=== PATIENT | female | born 1980 | race Caucasian/White ===

== ENCOUNTER 2019-01-05 13:51 | Emergency (ER) | payer OTHER ==
[~2019-01-05] VITALS: Ht 162.6 cm; Wt 59.0 kg
[~2019-01-05 13:51] MED LIST: ALBU90OI INH; Amoxicillin500 MG PO; BCP'S; BIRTH CONTROL; CEPH500 PO; CODGUAEL PO; Cipro500 MG PO; DIAZ2 PO; DULO30; DULO60 PO; HYDACE10B; HYDACE5 PO; HYDACE7.5; IBUP600 PO; IBUP800 PO; LORA.5; LORA1 PO; LORA2; Labetalol HCl300 MG PO; META800 PO; MULVITMINE; NAPR220; NAPR500 PO; NAPR550 PO; OXYACE5T PO; PENVK500 PO; RANI150 PO; RXOXYACE PO; SPACE CHAMBER1 EACH MC; Veetids 500500 MG PO; Verotin-Gr Cap1 EACH; Zithromax250 MG PO
[2019-01-05] MEDS ORDERED: LISINOPRIL (14:21)
[2019-01-05] MEDS ORDERED: BENZ100A PO (15:15)
[2019-01-05] MEDS ORDERED: Flonase 0.05% N16 GM (15:15)
[2019-01-05] MEDS ORDERED: ALBU90OI INH (15:15)
[2019-01-05] MEDS ORDERED: Sudogest30 MG PO (15:15)
== END 2019-01-05 15:39 | disposition home or self-care (01) ==
LOC: ER 13:51
DX: J06.9 Acute upper respiratory infection, unspecified (principal); F17.200 Nicotine dependence, unspecified, uncomplicated; Z79.899 Other long term (current) drug therapy
CPT/HCPCS: 71046; 99283-25; J1100

== ENCOUNTER 2021-07-22 14:37 | Emergency (ER) | payer OTHER ==
[~2021-07-22] VITALS: Ht 162.6 cm; Wt 63.5 kg
[~2021-07-22 14:37] MED LIST changes: +BENZ100A PO; +Flonase 0.05% N16 GM; +LISINOPRIL; +Sudogest30 MG PO
[2021-07-22 16:03] LABS: BASOPHILS ABSOLUTE AUTO 0.04 K/mm3 (0.00-0.23); BASOPHILS PERCENT AUTO 0 % (0-2); EOSINOPHILS PERCENT AUTO 0 % (0-6); Hematocrit 41.4 % (33.0-51.0); Hemoglobin 13.8 g/dL (11.5-16.0); IMMATURE GRAN ABSOLUTE AUTO 0.04 K/mm3 (0.00-0.10); IMMATURE GRAN PERCENT AUTO 0 % (0-1); LYMPHOCYTES ABSOLUTE AUTO 1.67 K/mm3 (0.84-5.20); LYMPHOCYTES PERCENT AUTO 15 % (21-46); MONOCYTES ABSOLUTE AUTO 1.05 K/mm3 (0.16-1.47); MONOCYTES PERCENT AUTO 10 % (4-13); Mean Corpuscular HGB 30.6 pg (26.0-34.0); Mean Corpuscular HGB Conc 33.3 g/dL (31.5-36.5); Mean Corpuscular Volume 92 fL (80-100); Mean Platelet Volume 10.9 fL (9.1-12.4); NEUTROPHILS ABSOLUTE AUTO 8.19 K/mm3 (1.96-9.15); NEUTROPHILS PERCENT AUTO 74 % (41-73); Platelet Count 232 K/mm3 (150-400); RDW Coefficient Variation 11.8 % (11.7-14.2); RDW Standard Deviation 39.8 fL (35.1-46.3); Red Blood Cell Count 4.51 M/mm3 (3.80-5.20); White Blood Cell Count 10.99 K/mm3 (4.00-11.30)
[2021-07-22 16:27] LABS: Albumin, Blood 3.3 g/dL (3.4-5.0); Albumin/Globulin Ratio 0.8 (0.8-1.8); Bilirubin, Total 0.4 mg/dL (0.1-1.0); Bun/Creatinine Ratio 14.4 (12.0-20.0); Calcium, Blood 8.3 mg/dL (8.5-10.1); Creatinine, Blood 0.55 mg/dL (0.40-1.00); Globulin, Blood 4.2 g/dL (2.2-4.0); Potassium, Blood 3.3 mmol/L (3.5-5.5); Total Protein, Blood 7.5 g/dL (6.4-8.2)
[2021-07-22 16:48] LABS: Source, Urine Clean Catch
[2021-07-22 17:04] LABS: Appearance, Urine Hazy (Clear); Bilirubin, Urine Neg (Neg); Blood, Urine 3+ (Neg); Color, Urine Yellow (P-Yellow); Glucose Qualitative, Urine Neg (Neg); Ketones, Urine Neg (Neg); Leukocyte Esterase, Urine 3+ (Neg); Nitrite, Urine Neg (Neg); Protein, Urine Neg (Neg); Urobilinogen, Urine 1+ (Normal)
[2021-07-22 17:20] LABS: White Blood Cells, Urine 25-50 /hpf (0-5)
[2021-07-22 17:21] LABS: Bacteria Many /hpf; Squamous Epithelial Cells Mod /hpf (Few)
[2021-07-22 18:04] LABS: Source, Urine Clean Catch
[2021-07-22 18:09] LABS: Appearance, Urine Cloudy (Clear); Bilirubin, Urine Neg (Neg); Blood, Urine 4+ (Neg); Color, Urine Yellow (P-Yellow); Glucose Qualitative, Urine Neg (Neg); Ketones, Urine Neg (Neg); Leukocyte Esterase, Urine 3+ (Neg); Nitrite, Urine Neg (Neg); Protein, Urine 2+ (Neg); Urobilinogen, Urine 3+ (Normal)
[2021-07-22 18:20] LABS: Bacteria Few /hpf; Hyaline Casts 0-2 /lpf (0-2); RBC Cast 0-2 /lpf (0); Red Blood Cells, Urine TNTC /hpf (0-2); Squamous Epithelial Cells Few /hpf (Few); White Blood Cells, Urine TNTC /hpf (0-5)
[2021-07-22] MEDS ORDERED: PHENA200 PO (18:53)
[2021-07-22] MEDS ORDERED: CEPH500 PO (18:53)
== END 2021-07-22 19:08 | disposition home or self-care (01) ==
LOC: ER 14:37
PROVIDERS: Physician Assistant
DX: M46.1 Sacroiliitis, not elsewhere classified (principal); F17.200 Nicotine dependence, unspecified, uncomplicated; Z79.51 Long term (current) use of inhaled steroids; Z79.899 Other long term (current) drug therapy
CPT/HCPCS: 74176; 80053; 81001; 81025; 85025; A9270; J0696; J7030

== ENCOUNTER 2021-10-22 19:41 | Emergency (ER) | payer OTHER ==
[~2021-10-22] VITALS: Ht 162.6 cm; Wt 65.3 kg
[~2021-10-22 19:41] MED LIST changes: +PHENA200 PO
[2021-10-22] MEDS ORDERED: HYDRA50 PO (19:50)
[2021-10-22] MEDS ORDERED: LISI20 PO (19:51)
[2021-10-22 21:51] LABS: BASOPHILS ABSOLUTE AUTO 0.04 K/mm3 (0.00-0.23); BASOPHILS PERCENT AUTO 0 % (0-2); EOSINOPHILS ABSOLUTE AUTO 0.04 K/mm3 (0.00-0.68); EOSINOPHILS PERCENT AUTO 0 % (0-6); Hemoglobin 14.7 g/dL (11.5-16.0); IMMATURE GRAN ABSOLUTE AUTO 0.02 K/mm3 (0.00-0.10); IMMATURE GRAN PERCENT AUTO 0 % (0-1); LYMPHOCYTES PERCENT AUTO 29 % (21-46); MONOCYTES ABSOLUTE AUTO 0.69 K/mm3 (0.16-1.47); MONOCYTES PERCENT AUTO 8 % (4-13); Mean Corpuscular HGB 30.9 pg (26.0-34.0); Mean Corpuscular Volume 88 fL (80-100); Mean Platelet Volume 11.2 fL (9.1-12.4); NEUTROPHILS ABSOLUTE AUTO 5.53 K/mm3 (1.96-9.15); NEUTROPHILS PERCENT AUTO 62 % (41-73); Platelet Count 258 K/mm3 (150-400); RDW Standard Deviation 39.1 fL (35.1-46.3); Red Blood Cell Count 4.75 M/mm3 (3.80-5.20); White Blood Cell Count 8.92 K/mm3 (4.00-11.30)
[2021-10-22 22:01] LABS: Base Excess Venous 3.8 mmol/L; Bicarbonate Venous 27.4 mmol/L (24.0-30.0); PCO2 Venous 40.5 mmHg (38-42); pH Blood Venous 7.45 (7.34-7.37)
[2021-10-22 22:19] LABS: Albumin/Globulin Ratio 1.2 (0.8-1.8); Bilirubin, Total 0.2 mg/dL (0.1-1.0); Bun/Creatinine Ratio 26.2 (12.0-20.0); Calcium, Blood 8.6 mg/dL (8.5-10.1); Creatinine, Blood 1.03 mg/dL (0.40-1.00); Globulin, Blood 3.3 g/dL (2.2-4.0); Magnesium, Blood 2.2 mg/dL (1.6-2.4); Potassium, Blood 3.4 mmol/L (3.5-5.5); Thyroid Stimulating Hormone 1.52 uIU/mL (0.360-4.800); Total Protein, Blood 7.3 g/dL (6.4-8.2)
== END 2021-10-22 23:52 ==
LOC: ER 19:41
PROVIDERS: Student in an Organized Health Care Education/Training Program
DX: R42 Dizziness and giddiness (principal); R20.2 Paresthesia of skin; F17.200 Nicotine dependence, unspecified, uncomplicated; Z79.899 Other long term (current) drug therapy
CPT/HCPCS: 36415; 70450; 71046; 80053; 82803; 83735; 83880; 84443; 84484; 85025; 93005; 93010; 99285-25; A9270

== ENCOUNTER → 2022-08-16 | Outpatient (CLI) | payer OTHER ==
[~2022-08-16] MED LIST changes: +HYDRA50 PO; +LISI20 PO
== END | disposition home or self-care (01) ==
LOC: LAB SHORT 11:20 → LAB 11:20
DX: N39.0 Urinary tract infection, site not specified (principal)
CPT/HCPCS: 87077; 87086; 87186

== ENCOUNTER → 2022-11-07 | Outpatient (CLI) | payer OTHER | END | disposition home or self-care (01) | LOC: LAB 19:06 → LAB SHORT 19:06 | DX: N39.0 Urinary tract infection, site not specified (principal) | CPT/HCPCS: 87077; 87086; 87186 ==

== ENCOUNTER 2023-02-15 16:36 | Emergency (ER) | payer OTHER ==
[~2023-02-15] VITALS: Ht 162.6 cm; Wt 62.1 kg
[2023-02-15 16:40] VITALS: BP 203/114
== END 2023-02-15 17:50 | disposition home or self-care (01) ==
LOC: ER 16:36
DX: J06.9 Acute upper respiratory infection, unspecified (principal); I10 Essential (primary) hypertension; F17.200 Nicotine dependence, unspecified, uncomplicated; Z79.899 Other long term (current) drug therapy
CPT/HCPCS: 96372; 99283-25; J1885

== ENCOUNTER → 2023-11-11 | Outpatient (CLI) | payer OTHER ==
[~2023-11-11] MED LIST changes: +METO10 PO
[2023-11-11 15:41] LABS: BASOPHILS ABSOLUTE AUTO 0.03 K/mm3 (0.00-0.23); BASOPHILS PERCENT AUTO 0 % (0-2); EOSINOPHILS ABSOLUTE AUTO 1.05 K/mm3 (0.00-0.68); EOSINOPHILS PERCENT AUTO 10 % (0-6); Hematocrit 43.1 % (33.0-51.0); IMMATURE GRAN ABSOLUTE AUTO 0.03 K/mm3 (0.00-0.10); IMMATURE GRAN PERCENT AUTO 0 % (0-1); LYMPHOCYTES ABSOLUTE AUTO 2.11 K/mm3 (0.84-5.20); LYMPHOCYTES PERCENT AUTO 21 % (21-46); MONOCYTES ABSOLUTE AUTO 0.53 K/mm3 (0.16-1.47); MONOCYTES PERCENT AUTO 5 % (4-13); Mean Corpuscular HGB 30.4 pg (26.0-34.0); Mean Corpuscular HGB Conc 34.8 g/dL (31.5-36.5); Mean Corpuscular Volume 87 fL (80-100); Mean Platelet Volume 11.7 fL (9.1-12.4); NEUTROPHILS PERCENT AUTO 63 % (41-73); Platelet Count 224 K/mm3 (150-400); RDW Coefficient Variation 12.4 % (11.7-14.2); RDW Standard Deviation 39.5 fL (35.1-46.3); Red Blood Cell Count 4.94 M/mm3 (3.80-5.20); White Blood Cell Count 10.15 K/mm3 (4.00-11.30)
[2023-11-11 15:43] LABS: Albumin, Blood 3.9 g/dL (3.4-5.0); Bilirubin, Total 0.3 mg/dL (0.1-1.0); Bun/Creatinine Ratio 8.3 (12.0-20.0); Calcium, Blood 8.9 mg/dL (8.5-10.1); Creatinine, Blood 0.84 mg/dL (0.40-1.00); Globulin, Blood 4.1 g/dL (2.2-4.0)
== END | disposition home or self-care (01) ==
LOC: LAB SHORT 15:25 → LAB 15:25
PROVIDERS: Physician Assistant
DX: K52.9 Noninfective gastroenteritis and colitis, unspecified (principal)
CPT/HCPCS: 80053; 85025

== ENCOUNTER 2023-11-20 11:59 | Inpatient (IN) | payer OTHER ==
[~2023-11-20] VITALS: Ht 162.6 cm; Wt 73.5 kg
[2023-11-20 12:35] LABS: LYMPHOCYTES PERCENT AUTO 11 % (21-46); Mean Corpuscular Volume 86 fL (80-100); RDW Coefficient Variation 12.4 % (11.7-14.2); RDW Standard Deviation 38.6 fL (35.1-46.3)
[2023-11-20 12:40] LABS: BASOPHILS ABSOLUTE AUTO 0.08 K/mm3 (0.00-0.23); BASOPHILS PERCENT AUTO 1 % (0-2); EOSINOPHILS ABSOLUTE AUTO 7.65 K/mm3 (0.00-0.68); EOSINOPHILS PERCENT AUTO 44 % (0-6); Hematocrit 43.2 % (33.0-51.0); Hemoglobin 15.4 g/dL (11.5-16.0); IMMATURE GRAN ABSOLUTE AUTO 0.03 K/mm3 (0.00-0.10); IMMATURE GRAN PERCENT AUTO 0 % (0-1); LYMPHOCYTES ABSOLUTE AUTO 1.94 K/mm3 (0.84-5.20); MONOCYTES ABSOLUTE AUTO 0.66 K/mm3 (0.16-1.47); MONOCYTES PERCENT AUTO 4 % (4-13); Mean Corpuscular HGB 30.6 pg (26.0-34.0); Mean Corpuscular HGB Conc 35.6 g/dL (31.5-36.5); Mean Platelet Volume 11.7 fL (9.1-12.4); NEUTROPHILS PERCENT AUTO 40 % (41-73); Platelet Count 179 K/mm3 (150-400); Red Blood Cell Count 5.04 M/mm3 (3.80-5.20); White Blood Cell Count 17.36 K/mm3 (4.00-11.30)
[2023-11-20 13:01] LABS: Albumin, Blood 3.6 g/dL (3.4-5.0); Albumin/Globulin Ratio 0.8 (0.8-1.8); Bilirubin, Total 0.7 mg/dL (0.1-1.0); Bun/Creatinine Ratio 14.1 (12.0-20.0); Calcium, Blood 9.2 mg/dL (8.5-10.1); Creatinine, Blood 0.57 mg/dL (0.40-1.00); Globulin, Blood 4.3 g/dL (2.2-4.0); Potassium, Blood 3.3 mmol/L (3.5-5.5); Total Protein, Blood 7.9 g/dL (6.4-8.2)
[2023-11-20 15:01] LABS: Anti-Xa UFH, PHA Monitoring <0.10 IU/mL; International Normalized Ratio 1.08; Prothrombin Time Results 11.5 Sec (9.7-11.5)
[2023-11-20] MEDS ORDERED: HydrALAZINE HCl 20 MG / ML 1ML Vial IV PRN (15:20)
[2023-11-20] MEDS ORDERED: Potassium Chloride 20 MEQ TabCR PO ONE (15:30)
[2023-11-20 15:39] LABS: CHOL/HDL RATIO 4.1; Cholesterol 134 mg/dL (50-200); HDL Cholesterol 33 mg/dL (>39); LDL/HDL RATIO 2.5; Low Density Lipoprotein Chol 83 mg/dL (0-110); Triglycerides 90 mg/dL (30-160); Very Low Density Lipoprot Chol 18 mg/dL (6-32)
[2023-11-20] MEDS ORDERED: Heparin Sodium,Porcine/0.5 NS 500 ML IV SCH (15:45)
[2023-11-20] MEDS ORDERED: Atorvastatin 40 MG Tab PO SCH ×2 (16:18→17:00)
[2023-11-20] MEDS ORDERED: Clopidogrel Bisulfate 300 MG Cap PO ONE (16:25)
[2023-11-20] MEDS ORDERED: Lactated Ringer's 1,000 ML IV SCH (17:00)
[2023-11-20] MEDS ORDERED: Carvedilol 3.125 MG Tab PO SCH (17:00)
[2023-11-20 17:45] VITALS: BP 153/84
[2023-11-20] MEDS ORDERED: Nicotine 14 MG PATCH TOP SCH (17:50)
[2023-11-20 20:07] VITALS: BP 124/94
[2023-11-20 20:47] LABS: U Amphetamine Screen DETECTED; U Barbituate Screen Not Detected; U Benzodiazapine Screen Not Detected; U Buprenorphine Screen Not Detected; U Cannabinoids Screen Not Detected; U Cocaine Screen Not Detected; U Methadone Screen Not Detected; U Methamphetamine Screen DETECTED; U Opiates Screen Not Detected; U Oxycodone Screen Not Detected; U Phencyclidine Screen Not Detected
[2023-11-20] MEDS ORDERED: Dose Adjust by Pharmacy XX STA (23:23)
[2023-11-20 23:28] VITALS: BP 155/99
[2023-11-21 00:56] LABS: Adenovirus F 40/41 Not Detected (NOT DETECT); Astrovirus Not Detected (NOT DETECT); Campylobacter Sp Not Detected (NOT DETECT); Cryptosporidium Not Detected (NOT DETECT); Cyclospora Cayetanensis Not Detected (NOT DETECT); E. Coli O157 Not Detected (NOT DETECT); Entamoeba Histolytica Not Detected (NOT DETECT); Enteroaggregative E. coli-EAEC Not Detected (NOT DETECT); Enteropathogenic E. coli-EPEC Not Detected (NOT DETECT); Enterotoxigenic E. coli-ETEC Not Detected (NOT DETECT); Giardia Lamblia Not Detected (NOT DETECT); Norovirus GI/GII Not Detected (NOT DETECT); Plesiomonas Shigelloides Not Detected (NOT DETECT); Rotavirus A Not Detected (NOT DETECT); Salmonella Sp Not Detected (NOT DETECT); Sapovirus Not Detected (NOT DETECT); Shiga Toxin-prod E. coli-STEC Not Detected (NOT DETECT); Shigella/Enteroin E. coli-EIEC Not Detected (NOT DETECT); Vibrio Cholerae Not Detected (NOT DETECT); Vibrio Sp Not Detected (NOT DETECT); Yersinia Enterocolitica Not Detected (NOT DETECT)
[2023-11-21 03:36] VITALS: BP 122/79
--- NOTE | 2023-11-21 04:46 | NUR ---
END OF SHIFT NOTE: NO ACUTE OVERNIGHT EVENTS. PT A/OX4, ABLE TO CALL APPROPRIATELY & COMMUNICATE NEEDS W/ STAFF. HR 70-80'S, SINUS RHYTHM ON TELE. SBP 120-150'S, ENDORSES INTERMITTENT MILD CHEST PAIN BUT ABLE TO SLEEP MOST OF NOC. SPO2 >90% ON RA. HEPARIN GTT INFUSING AT 17 U/KG/HR, MANAGED BY PHARMACY. LR INFUSING AT 100 MG/HR. NPO SINCE 0000 FOR CARDIOLOGY CONSULT THIS AM. INDEPENDENTLY AMBULATING TO RESTROOM. URINE & STOOL SAMPLES SENT THIS SHIFT. STOOL REMAINS LIQUID BROWN. NO OTHER NEEDS AT THIS TIME. CALL LIGHT IN REACH, WILL REPORT TO ONCOMING RN.
[2023-11-21] MEDS ORDERED: Dose Adjust by Pharmacy XX STA (05:57)
[2023-11-21 06:01] LABS: Albumin, Blood 2.9 g/dL (3.4-5.0); Albumin/Globulin Ratio 0.8 (0.8-1.8); Bilirubin, Total 0.5 mg/dL (0.1-1.0); Bun/Creatinine Ratio 18.5 (12.0-20.0); Calcium, Blood 8.4 mg/dL (8.5-10.1); Creatinine, Blood 0.6 mg/dL (0.40-1.00); Globulin, Blood 3.5 g/dL (2.2-4.0); Potassium, Blood 3.4 mmol/L (3.5-5.5); Total Protein, Blood 6.4 g/dL (6.4-8.2)
[2023-11-21 06:02] LABS: BASOPHILS ABSOLUTE AUTO 0.04 K/mm3 (0.00-0.23); BASOPHILS PERCENT AUTO 0 % (0-2); EOSINOPHILS ABSOLUTE AUTO 4.37 K/mm3 (0.00-0.68); EOSINOPHILS PERCENT AUTO 34 % (0-6); Hematocrit 37.7 % (33.0-51.0); Hemoglobin 13.1 g/dL (11.5-16.0); IMMATURE GRAN ABSOLUTE AUTO 0.04 K/mm3 (0.00-0.10); IMMATURE GRAN PERCENT AUTO 0 % (0-1); LYMPHOCYTES ABSOLUTE AUTO 2.44 K/mm3 (0.84-5.20); LYMPHOCYTES PERCENT AUTO 19 % (21-46); MONOCYTES ABSOLUTE AUTO 0.68 K/mm3 (0.16-1.47); MONOCYTES PERCENT AUTO 5 % (4-13); Mean Corpuscular HGB 30.4 pg (26.0-34.0); Mean Corpuscular HGB Conc 34.7 g/dL (31.5-36.5); Mean Corpuscular Volume 88 fL (80-100); Mean Platelet Volume 11.9 fL (9.1-12.4); NEUTROPHILS ABSOLUTE AUTO 5.22 K/mm3 (1.96-9.15); NEUTROPHILS PERCENT AUTO 41 % (41-73); Platelet Count 150 K/mm3 (150-400); RDW Coefficient Variation 12.2 % (11.7-14.2); RDW Standard Deviation 39.7 fL (35.1-46.3); Red Blood Cell Count 4.31 M/mm3 (3.80-5.20); White Blood Cell Count 12.79 K/mm3 (4.00-11.30)
[2023-11-21 08:00] VITALS: BP 138/97
[2023-11-21] MEDS ORDERED: Potassium Chloride 20 MEQ TabCR PO ONE (10:00)
[2023-11-21 12:07] LABS: Hematocrit 36.5 % (33.0-51.0); Hemoglobin 12.6 g/dL (11.5-16.0)
[2023-11-21 12:48] VITALS: BP 138/88
--- NOTE | 2023-11-21 13:33 | NUR ---
PT HAS BEEN RESTING IN BED WITH EYES CLOSED FOR MOST OF THE DAY. SHE AWAKENS EASILY TO VERBAL STIMULI. SHE DENIES CP OR SOB, REPORTS THAT SHE DID HAVE SOME CP THAT WOKE HER DURING THE NIGHT WHICH HAS NOT RETURNED. DR NAIK WAS IN THIS MORNING TO CONSULT, CONSENT FOR ANGIO WAS SIGNED THIS AM, PLAN IS THAT SHE WILL GO FOR ANGIO 11/21 OR 11/22 DEPENDING ON SERVICE STATION OPERATOR AVAILABILITY. NADN. WADE.
[2023-11-21] MEDS ORDERED: Clopidogrel Bisulfate 75 MG Tab PO SCH (17:00)
[2023-11-21 17:50] VITALS: BP 145/93
--- NOTE | 2023-11-21 18:14 | NUR ---
PT HAS BEEN RESTING WELL PAIN FREE FOR THE SHIFT. HEPARIN CONTINUES TO INFUSE WELL. VSS. PT IS AWARE THAT SHE WILL BE NPO AT MIDNIGHT FOR ANGIO IN THE AM. SHE HAS BEEN UP TO BATHROOM WITH EVEN STEADY GAIT.
[2023-11-21 19:29] VITALS: BP 136/92
[2023-11-21 20:49] LABS: SARS-Cov-2 (COVID-19) PCR, MMC NEGATIVE (NEGATIVE)
[2023-11-22] VITALS (11 sets, daily range): BP systolic 101–152; BP diastolic 69–98
[2023-11-22] MEDS ORDERED: Dose Adjust by Pharmacy XX STA (03:16)
[2023-11-22 04:23] LABS: BASOPHILS ABSOLUTE AUTO 0.05 K/mm3 (0.00-0.23); BASOPHILS PERCENT AUTO 1 % (0-2); EOSINOPHILS ABSOLUTE AUTO 1.69 K/mm3 (0.00-0.68); EOSINOPHILS PERCENT AUTO 19 % (0-6); Hematocrit 35.7 % (33.0-51.0); Hemoglobin 12.2 g/dL (11.5-16.0); IMMATURE GRAN ABSOLUTE AUTO 0.03 K/mm3 (0.00-0.10); IMMATURE GRAN PERCENT AUTO 0 % (0-1); LYMPHOCYTES ABSOLUTE AUTO 2.67 K/mm3 (0.84-5.20); LYMPHOCYTES PERCENT AUTO 31 % (21-46); MONOCYTES ABSOLUTE AUTO 0.69 K/mm3 (0.16-1.47); MONOCYTES PERCENT AUTO 8 % (4-13); Mean Corpuscular HGB 30.3 pg (26.0-34.0); Mean Corpuscular HGB Conc 34.2 g/dL (31.5-36.5); Mean Corpuscular Volume 89 fL (80-100); Mean Platelet Volume 12.1 fL (9.1-12.4); NEUTROPHILS PERCENT AUTO 41 % (41-73); Platelet Count 150 K/mm3 (150-400); RDW Coefficient Variation 12.2 % (11.7-14.2); RDW Standard Deviation 39.7 fL (35.1-46.3); Red Blood Cell Count 4.02 M/mm3 (3.80-5.20); White Blood Cell Count 8.73 K/mm3 (4.00-11.30)
[2023-11-22 04:50] LABS: CHOL/HDL RATIO 3.6; Cholesterol 89 mg/dL (50-200); HDL Cholesterol 25 mg/dL (>39); LDL/HDL RATIO 1.8; Low Density Lipoprotein Chol 45 mg/dL (0-110); Thyroid Stimulating Hormone 0.877 uIU/mL (0.360-4.800); Triglycerides 94 mg/dL (30-160); Very Low Density Lipoprot Chol 18 mg/dL (6-32)
[2023-11-22] MEDS ORDERED: FentaNYL Citrate 50 MCG/ML 2 ML Injection ONE (09:39)
[2023-11-22] MEDS ORDERED: Midazolam HCl 1MG / ML 2ML Vial ONE ×2 (09:39→10:21)
[2023-11-22] MEDS ORDERED: Verapamil HCL 2.5 MG/ML 2ML Injection ONE (09:39)
[2023-11-22 09:40] LABS: Bun/Creatinine Ratio 13.2 (12.0-20.0); Calcium, Blood 8.1 mg/dL (8.5-10.1); Creatinine, Blood 0.53 mg/dL (0.40-1.00); Potassium, Blood 3.6 mmol/L (3.5-5.5)
[2023-11-22] MEDS ORDERED: NS 2,000 ML IV ONE (09:40)
[2023-11-22] MEDS ORDERED: Nitroglycerin 2 MG/20 ML BTL ONE (09:40)
[2023-11-22] MEDS ORDERED: NS 0 ML IV ONE (09:40)
[2023-11-22] MEDS ORDERED: Heparin Sodium 1000 Units/ML 10ML MDV ONE (09:40)
[2023-11-22] MEDS ORDERED: NS 250 ML IV ONE (09:42)
--- NOTE | 2023-11-22 10:09 | NUR ---
UPDATE PT TAKEN TO PRODUCTION CONTROL COORDINATING CLERK FOR PROCEDURE. WILL AWAIT RETURN
--- NOTE | 2023-11-22 10:55 | NUR ---
UPDATE PT RETURNED FROM EDUCATIONAL PROGRAM ASSISTANT WITH RIGHT RADIAL SITE. TR BAND IN PLACE AND ARM BOARD. EDUCATION PROVIDED ON RIGHT ARM RESTRICTIONS AND PT VERBALIZES UNDERSTANDING. VS STABLE. PT SITTING UP EATING SNACK
[2023-11-22] MEDS ORDERED: Acetaminophen 325 MG TABLET PO PRN (13:00)
[2023-11-22] MEDS ORDERED: AMLO5 PO (13:05)
[2023-11-22] MEDS ORDERED: CLOP75 PO (13:06)
[2023-11-22] MEDS ORDERED: ATOR20 PO (13:06)
[2023-11-22] MEDS ORDERED: Nicoderm Cq1 EAC1 TOP (13:06)
[2023-11-22] MEDS ORDERED: ASPI81CH PO (13:06)
--- NOTE | 2023-11-22 15:56 | NUR ---
UPDATE RIGHT RADIAL SITE RECOVERED WITHOUT COMPLICATIONS. CLEAR DRESSING IN PLACE. ARM BOARD IN PLACE. NO BLEEDING, BRUISING OR HEMATOMA NOTED. VS STABLE. DISCHARGE INSTRUCTIONS PROVIDED TO PT. PT EDUCATED ON ALL CHANGES AND NEW MEDICATIONS. ALL QUESTIONS ANSWERED. PT TAKEN OUT VIA WC
[2023-11-23] MEDS ORDERED: AmLODIPine Besylate 5 MG Tab PO SCH (09:00)
== END 2023-11-22 16:00 | disposition home or self-care (01) | DRG 287 ==
LOC: ER 11:59 → PCU 12:00
PROVIDERS: Student in an Organized Health Care Education/Training Program; ADMIT Internal Medicine
PROC: B2111ZZ Fluoroscopy of Multiple Coronary Arteries using Low Osmolar Contrast (ICD-10-PCS; principal; 2023-11-22)
DX: I5A Non-ischemic myocardial injury (non-traumatic) (principal); K52.9 Noninfective gastroenteritis and colitis, unspecified; E87.6 Hypokalemia; F15.11 Other stimulant abuse, in remission; F17.210 Nicotine dependence, cigarettes, uncomplicated; I10 Essential (primary) hypertension; R07.9 Chest pain, unspecified; D72.10 Eosinophilia, unspecified; Z79.899 Other long term (current) drug therapy; Z98.890 Other specified postprocedural states
CPT/HCPCS: 71046; 76937; 80048; 80053; 80061; 81025; 83036; 83690; 83880; 84443; 84484; 85014; 85018; 85025; 85520; 85610; 85730; 87507; 93005; 93010; 93306; 93454; 94762; 96365-59; 96366-59; 96376; 99152; 99285-25; A9270; C1751; C1769; C1887; C1894; G0378; J1644; J2250; J3010; J7030; J7050; J7120; Q9967; U0002

== ENCOUNTER 2023-12-06 20:31 | Emergency (ER) | payer OTHER ==
[~2023-12-06] VITALS: Ht 162.6 cm; Wt 70.3 kg
[~2023-12-06 20:31] MED LIST changes: +AMLO5 PO; +ASPI81CH PO; +ATOR20 PO; +CLOP75 PO; +Nicoderm Cq1 EAC1 TOP
[2023-12-06] MEDS ORDERED: Ondansetron HCl 2 MG / ML 2ML Vial IV PRN (20:50)
[2023-12-06 21:07] LABS: BASOPHILS ABSOLUTE AUTO 0.04 K/mm3 (0.00-0.23); BASOPHILS PERCENT AUTO 1 % (0-2); EOSINOPHILS ABSOLUTE AUTO 0.26 K/mm3 (0.00-0.68); EOSINOPHILS PERCENT AUTO 3 % (0-6); Hematocrit 41.1 % (33.0-51.0); IMMATURE GRAN ABSOLUTE AUTO 0.03 K/mm3 (0.00-0.10); IMMATURE GRAN PERCENT AUTO 0 % (0-1); LYMPHOCYTES ABSOLUTE AUTO 2.27 K/mm3 (0.84-5.20); LYMPHOCYTES PERCENT AUTO 26 % (21-46); MONOCYTES ABSOLUTE AUTO 0.66 K/mm3 (0.16-1.47); MONOCYTES PERCENT AUTO 8 % (4-13); Mean Corpuscular HGB 29.9 pg (26.0-34.0); Mean Corpuscular HGB Conc 34.1 g/dL (31.5-36.5); Mean Corpuscular Volume 88 fL (80-100); Mean Platelet Volume 11.1 fL (9.1-12.4); NEUTROPHILS ABSOLUTE AUTO 5.48 K/mm3 (1.96-9.15); NEUTROPHILS PERCENT AUTO 63 % (41-73); Platelet Count 346 K/mm3 (150-400); RDW Coefficient Variation 12.2 % (11.7-14.2); Red Blood Cell Count 4.69 M/mm3 (3.80-5.20); White Blood Cell Count 8.74 K/mm3 (4.00-11.30)
[2023-12-06 21:33] LABS: Albumin, Blood 3.8 g/dL (3.4-5.0); Albumin/Globulin Ratio 0.9 (0.8-1.8); Bilirubin, Total 0.4 mg/dL (0.1-1.0); Bun/Creatinine Ratio 17.1 (12.0-20.0); Creatinine, Blood 0.53 mg/dL (0.40-1.00); Globulin, Blood 4.4 g/dL (2.2-4.0); Potassium, Blood 3.1 mmol/L (3.5-5.5); Total Protein, Blood 8.2 g/dL (6.4-8.2)
[2023-12-06] MEDS ORDERED: Potassium Chloride 20 MEQ TabCR PO ONE (22:25)
[2023-12-06] MEDS ORDERED: Ibuprofen 600 MG Tab PO ONE (23:05)
[2023-12-07 02:30] VITALS: BP 137/93
== END 2023-12-07 02:40 | disposition home or self-care (01) ==
LOC: ER 20:31
PROVIDERS: Emergency Medicine
DX: I31.9 Disease of pericardium, unspecified (principal); I10 Essential (primary) hypertension; F17.210 Nicotine dependence, cigarettes, uncomplicated; Z79.02 Long term (current) use of antithrombotics/antiplatelets; Z79.82 Long term (current) use of aspirin; Z79.899 Other long term (current) drug therapy
CPT/HCPCS: 71046; 80053; 83690; 83880; 84484; 85025; 93005; 93010; 99284-25; A9270

== ENCOUNTER → 2024-02-06 | Outpatient (CLI) | payer OTHER | LOC: LAB SHORT 16:00 → LAB 16:00 | DX: N39.0 Urinary tract infection, site not specified (principal) | CPT/HCPCS: 87077; 87086; 87186 ==

== ENCOUNTER 2024-05-15 17:38 | Emergency (ER) | payer OTHER ==
[~2024-05-15] VITALS: Ht 162.6 cm; Wt 63.5 kg
[2024-05-15 18:21] VITALS: BP 182/120
[2024-05-15 19:00] LABS: Source, Urine Clean Catch
[2024-05-15 19:03] LABS: Appearance, Urine Clear (Clear); Bilirubin, Urine Neg (Neg); Blood, Urine 3+ (Neg); Color, Urine Yellow (P-Yellow); Glucose Qualitative, Urine Neg (Neg); Ketones, Urine Neg (Neg); Leukocyte Esterase, Urine 2+ (Neg); Nitrite, Urine Neg (Neg); Protein, Urine Neg (Neg); Urobilinogen, Urine NORM (Normal)
[2024-05-15 19:12] LABS: Bacteria Many /hpf; Squamous Epithelial Cells Mod /hpf (Few); Transitional Epithelial Cells Few /hpf (0-Rare)
[2024-05-15] MEDS ORDERED: Phenazopyridine HCl 100 MG Tab PO ONE (19:50)
[2024-05-15] MEDS ORDERED: Ketorolac Tromethamine 15mg Vial IM ONE (19:50)
[2024-05-15] MEDS ORDERED: Trimethoprim/Sulfamethoxazole DS Tab PO ONE (19:55)
[2024-05-15] MEDS ORDERED: Pyridium100 MG PO (19:55)
[2024-05-15] MEDS ORDERED: BACTRIM DS TAB1 EAC1 PO (19:55)
== END 2024-05-15 20:27 | disposition home or self-care (01) ==
LOC: ER 17:38
PROVIDERS: Physician Assistant
DX: N39.0 Urinary tract infection, site not specified (principal); I10 Essential (primary) hypertension; F17.210 Nicotine dependence, cigarettes, uncomplicated; Z79.02 Long term (current) use of antithrombotics/antiplatelets; Z79.82 Long term (current) use of aspirin; Z88.1 Allergy status to other antibiotic agents; Z79.2 Long term (current) use of antibiotics
CPT/HCPCS: 81001; 81025; 87086; 96372; 99283-25; A9270; J1885

== ENCOUNTER → 2024-07-26 | Outpatient (CLI) | payer OTHER ==
[~2024-07-26] MED LIST changes: +BACTRIM DS TAB1 EAC1 PO; +Pyridium100 MG PO
== END ==
LOC: LAB SHORT 15:24 → LAB 15:24
DX: N39.0 Urinary tract infection, site not specified (principal)
CPT/HCPCS: 87077; 87086; 87186

== ENCOUNTER → 2024-12-19 | Outpatient (CLI) | payer OTHER ==
[~2024-12-19] MED LIST changes: +ZESTRIL40 M1 PO
== END ==
LOC: LAB SHORT 12:52 → LAB 12:52
DX: N39.0 Urinary tract infection, site not specified (principal)
CPT/HCPCS: 87077; 87086; 87186